=== PATIENT | female | born 1970 | race Caucasian/White ===

== ENCOUNTER 2017-12-31 21:10 | Emergency (ER) | payer SELFPAY ==
[~2017-12-31] VITALS: Ht 149.9 cm; Wt 91.2 kg
[~2017-12-31 21:10] MED LIST: FLEXERIL PO; FLUOXETINE20 MG PO; GABAPENTIN300 MG PO; HYDROXYZ HCL25 MG PO; OLANZAPINE2.5 MG PO; ULTRAM50 M1 PO; VENTOLIN HFA IN; VERAMYST27.5 MCG
[2017-12-31] MEDS ORDERED: TRAZODONE50 MG PO (21:24)
[2017-12-31] MEDS ORDERED: INDERAL10 M1 PO (21:26)
[2017-12-31] MEDS ORDERED: GEODON40 M1 PO (21:27)
[2017-12-31] MEDS ORDERED: DICLOFENAC SODI75 MG PO (21:27)
[2017-12-31] MEDS ORDERED: FLEXERIL5 MG PO (21:28)
[2017-12-31] MEDS ORDERED: CLARITIN-D1 TA2 PO (21:28)
[2017-12-31 22:01] LABS: INFLUENZA A NONE DETECTED (NONE DETECT); INFLUENZA B NONE DETECTED (NONE DETECT)
[2017-12-31 22:06] LABS: HEMATOCRIT 42.6 % (37.0-47.0); HEMOGLOBIN 13.6 g/dl (12.0-16.0); IMMATURE GRANULOCYTES 0.5 % (0.0-1.0); MEAN CELL VOLUME 84.5 fL CALC (80.0-100.0); MEAN CORPUSCULAR HGB CONC 31.9 g/L CALC (32.0-36.0); RED BLOOD COUNT 5.04 mill/uL (4.20-5.60); RED CELL DISTRI WIDTH 14.7 % (11.5-15.5)
[2017-12-31 22:18] LABS: ALBUMIN 4.1 g/dL (3.2-5.0); ALKALINE PHOSPHATASE 151 u/l (38-126); ANION GAP 17 (6-22 (CALC)); BILIRUBIN, TOTAL 0.5 mg/dL (0.0-1.4); BUN 7 mg/dL (7-17); BUN/CREATININE RATIO 8 (12-20 (CALC)); CARBON DIOXIDE 27 mmol/l (22-30); CHLORIDE 99 mmol/l (95-108); CREATININE 0.8 mg/dL (0.5-1.0); GFR > 60 ML/MIN (>=60 (CALC)); GFR FOR AFR.AMER. > 60 ML/MIN (>=60 (CALC)); POTASSIUM 3.9 mmol/l (3.5-5.1); SGOT/AST 34 u/l (14-36); SGPT/ALT 37 u/l (9-52); SODIUM 140 mmol/l (137-146); TOTAL PROTEIN 8.2 g/dL (6.3-8.2)
[2017-12-31] MEDS ORDERED: LORTAB 1010 MG PO (22:34)
[2017-12-31] MEDS ORDERED: CLARITIN10 M1 PO (22:34)
[2017-12-31] MEDS ORDERED: AMOXICILLIN500 MG PO (22:34)
[2017-12-31 22:50] VITALS: BP 125/74
== END 2017-12-31 22:50 | disposition home or self-care (01) | DRG 153 ==
LOC: ED 21:10
PROVIDERS: Emergency Medicine
DX: J02.0 Streptococcal pharyngitis (principal); F17.210 Nicotine dependence, cigarettes, uncomplicated; J44.9 Chronic obstructive pulmonary disease, unspecified

== ENCOUNTER 2018-09-02 13:24 | Emergency (ER) | payer SELFPAY ==
[~2018-09-02] VITALS: Ht 149.9 cm; Wt 77.0 kg
[~2018-09-02 13:24] MED LIST changes: +AMOXICILLIN500 MG PO; +CLARITIN-D1 TA2 PO; +CLARITIN10 M1 PO; +DICLOFENAC SODI75 MG PO; +FLEXERIL5 MG PO; +GEODON40 M1 PO; +INDERAL10 M1 PO; +LORTAB 1010 MG PO; +TRAZODONE50 MG PO
[2018-09-02] MEDS ORDERED: KEFLEX500 M1 PO (15:31)
[2018-09-02] MEDS ORDERED: LORTAB 5/3255 MG PO (15:31)
[2018-09-02 15:34] VITALS: BP 120/78
== END 2018-09-02 15:40 | disposition home or self-care (01) | DRG 605 ==
LOC: ED 13:24
PROC: 2W3HX1Z Immobilization of Left Thumb using Splint (ICD-10-PCS; principal; 2018-09-02)
DX: S61.032A Puncture wound without foreign body of left thumb without damage to nail, initial encounter (principal); S60.012A Contusion of left thumb without damage to nail, initial encounter; J44.9 Chronic obstructive pulmonary disease, unspecified; F17.210 Nicotine dependence, cigarettes, uncomplicated; W25.XXXA Contact with sharp glass, initial encounter; Y93.89 Activity, other specified; Y92.009 Unspecified place in unspecified non-institutional (private) residence as the place of occurrence of the external cause

== ENCOUNTER 2019-03-30 18:38 | Emergency (ER) | payer SELFPAY ==
[~2019-03-30] VITALS: Ht 149.9 cm; Wt 86.6 kg
[~2019-03-30 18:38] MED LIST changes: +KEFLEX500 M1 PO; +LORTAB 5/3255 MG PO
[2019-03-30] MEDS ORDERED: QUETIAPINE FUM100 MG PO (19:21)
[2019-03-30] MEDS ORDERED: BIKTARVY PO (19:28)
[2019-03-30 19:54] LABS: HEMATOCRIT 37.7 % (37.0-47.0); HEMOGLOBIN 11.9 g/dl (12.0-16.0); IMMATURE GRANULOCYTES 0.2 % (0.0-5.0); MEAN CELL VOLUME 88.1 fL CALC (80.0-100.0); MEAN CORPUSCULAR HGB 27.8 pG CALC (26.0-32.0); MEAN CORPUSCULAR HGB CONC 31.6 g/L CALC (32.0-36.0); NEUT# 4.63 thou/uL (2.00-7.15); RED BLOOD COUNT 4.28 mill/uL (4.20-5.60); RED CELL DISTRI WIDTH 13.6 % (11.5-15.5)
[2019-03-30 20:04] LABS: ALBUMIN 3.6 g/dL (3.2-5.0); ALKALINE PHOSPHATASE 124 u/l (38-126); ANION GAP 12 (6-22 (CALC)); BILIRUBIN, TOTAL 0.1 mg/dL (0.0-1.4); BUN 15 mg/dL (7-17); BUN/CREATININE RATIO 17 (12-20 (CALC)); CARBON DIOXIDE 25 mmol/l (22-30); CHLORIDE 109 mmol/l (95-108); CREATININE 0.9 mg/dL (0.5-1.0); GFR > 60 ML/MIN (>=60 (CALC)); GFR FOR AFR.AMER. > 60 ML/MIN (>=60 (CALC)); POTASSIUM 3.7 mmol/l (3.5-5.1); SGOT/AST 19 u/l (14-36); SODIUM 143 mmol/l (137-146); TOTAL PROTEIN 6.9 g/dL (6.3-8.2)
[2019-03-30 20:59] VITALS: BP 106/77
== END 2019-03-30 21:26 | disposition home or self-care (01) | DRG 605 ==
LOC: ED 18:38
PROVIDERS: Emergency Medicine
DX: S80.02XA Contusion of left knee, initial encounter (principal); S40.011A Contusion of right shoulder, initial encounter; K14.0 Glossitis; J44.9 Chronic obstructive pulmonary disease, unspecified; F17.210 Nicotine dependence, cigarettes, uncomplicated; W19.XXXA Unspecified fall, initial encounter
CPT/HCPCS: L1830

== ENCOUNTER 2019-06-13 22:16 | Emergency (ER) | payer SELFPAY ==
[~2019-06-13] VITALS: Ht 149.9 cm; Wt 88.0 kg
[~2019-06-13 22:16] MED LIST changes: +BIKTARVY PO; +QUETIAPINE FUM100 MG PO
[2019-06-13 23:11] LABS: HEMATOCRIT 36.2 % (37.0-47.0); HEMOGLOBIN 12.1 g/dl (12.0-16.0); IMMATURE GRANULOCYTES 0.3 % (0.0-5.0); MEAN CELL VOLUME 87.4 fL CALC (80.0-100.0); MEAN CORPUSCULAR HGB 29.2 pG CALC (26.0-32.0); MEAN CORPUSCULAR HGB CONC 33.4 g/L CALC (32.0-36.0); NEUT# 5.4 thou/uL (2.00-7.15); RED BLOOD COUNT 4.14 mill/uL (4.20-5.60); RED CELL DISTRI WIDTH 14.6 % (11.5-15.5)
[2019-06-13 23:26] LABS: ALBUMIN 3.8 g/dL (3.2-5.0); BILIRUBIN, TOTAL 0.4 mg/dL (0.0-1.4); CREATININE 1.2 mg/dL (0.5-1.0); POTASSIUM 3.9 mmol/l (3.5-5.1); TOTAL PROTEIN 7.3 g/dL (6.3-8.2)
[2019-06-14] MEDS ORDERED: VOLTAREN - GENE75 MG PO (00:55)
[2019-06-14 01:10] VITALS: BP 131/78
== END 2019-06-14 01:10 | disposition home or self-care (01) | DRG 563 ==
LOC: ED 22:16
PROVIDERS: Family Medicine
DX: S46.912A Strain of unspecified muscle, fascia and tendon at shoulder and upper arm level, left arm, initial encounter (principal); S46.911A Strain of unspecified muscle, fascia and tendon at shoulder and upper arm level, right arm, initial encounter; S56.911A Strain of unspecified muscles, fascia and tendons at forearm level, right arm, initial encounter; S66.911A Strain of unspecified muscle, fascia and tendon at wrist and hand level, right hand, initial encounter; S76.011A Strain of muscle, fascia and tendon of right hip, initial encounter; S86.911A Strain of unspecified muscle(s) and tendon(s) at lower leg level, right leg, initial encounter; S80.211A Abrasion, right knee, initial encounter; J44.9 Chronic obstructive pulmonary disease, unspecified; F17.200 Nicotine dependence, unspecified, uncomplicated; W18.30XA Fall on same level, unspecified, initial encounter; Y92.410 Unspecified street and highway as the place of occurrence of the external cause; Z21 Asymptomatic human immunodeficiency virus [HIV] infection status
CPT/HCPCS: J0131

== ENCOUNTER 2019-07-01 11:52 | Observation (INO) | payer SELFPAY ==
[~2019-07-01] VITALS: Ht 149.9 cm; Wt 86.8 kg
[~2019-07-01 11:52] MED LIST changes: -GABAPENTIN300 MG PO; +GABAPENTIN400 MG PO; +VOLTAREN - GENE75 MG PO
[2019-07-01 12:46] LABS: HEMATOCRIT 42.7 % (37.0-47.0); HEMOGLOBIN 13.8 g/dl (12.0-16.0); IMMATURE GRANULOCYTES 0.4 % (0.0-5.0); MEAN CELL VOLUME 88.2 fL CALC (80.0-100.0); MEAN CORPUSCULAR HGB 28.5 pG CALC (26.0-32.0); MEAN CORPUSCULAR HGB CONC 32.3 g/L CALC (32.0-36.0); NEUT# 6.08 thou/uL (2.00-7.15); RED BLOOD COUNT 4.84 mill/uL (4.20-5.60); RED CELL DISTRI WIDTH 13.9 % (11.5-15.5)
[2019-07-01 13:07] LABS: ANION GAP 13 (6-22 (CALC)); BUN 14 mg/dL (7-17); BUN/CREATININE RATIO 15 (12-20 (CALC)); CARBON DIOXIDE 27 mmol/l (22-30); CHLORIDE 104 mmol/l (95-108); CREATININE 0.9 mg/dL (0.5-1.0); GFR > 60 ML/MIN (>=60 (CALC)); GFR FOR AFR.AMER. > 60 ML/MIN (>=60 (CALC)); POTASSIUM 3.7 mmol/l (3.5-5.1); SODIUM 141 mmol/l (137-146)
[2019-07-01] MEDS ORDERED: BIKTARVY 50-2001 TAB PO (14:09)
[2019-07-01] MEDS ORDERED: TRAZODONE100 MG PO (14:15)
[2019-07-01] MEDS ORDERED: ZIPRASIDONE HCL20 M1 PO (14:16)
[2019-07-01] MEDS ORDERED: OMEPRAZOLE20 M2 PO (14:16)
[2019-07-01 15:15] VITALS: BP 153/92
[2019-07-01 19:14] VITALS: BP 153/83
[2019-07-02 00:24] VITALS: BP 150/79
[2019-07-02 05:52] VITALS: BP 152/81
[2019-07-02 08:02] VITALS: BP 153/94
[2019-07-02 11:40] VITALS: BP 159/80
[2019-07-02 16:00] VITALS: BP 159/100
[2019-07-02 19:30] VITALS: BP 136/80
[2019-07-03 00:25] VITALS: BP 151/85
[2019-07-03 04:40] VITALS: BP 151/87
[2019-07-03 07:52] VITALS: BP 143/93
[2019-07-03 07:56] VITALS: BP 143/93
[2019-07-03] MEDS ORDERED: PREDNISONE10 MG PO (10:22)
[2019-07-03] MEDS ORDERED: IPRATROPIU0.5 MG/3 M IN (10:22)
[2019-07-03] MEDS ORDERED: LEVAQUIN750 MG PO (10:22)
[2019-07-03] MEDS ORDERED: NEBULIZER COMPRESSOR (10:23)
== END 2019-07-03 12:30 | disposition home or self-care (01) | DRG 191 ==
LOC: ED 11:52 → ED-I 13:50 → ED 14:28 → MS2 14:29
PROVIDERS: Family Medicine; ADMIT Internal Medicine; ATTEND Internal Medicine
PROC: 3E02340 Introduction of Influenza Vaccine into Muscle, Percutaneous Approach (ICD-10-PCS; principal; 2019-07-02)
PROC: 3E0234Z Introduction of Serum, Toxoid and Vaccine into Muscle, Percutaneous Approach (ICD-10-PCS; 2019-07-02)
DX: J44.1 Chronic obstructive pulmonary disease with (acute) exacerbation (principal); J32.9 Chronic sinusitis, unspecified; F31.81 Bipolar II disorder; F51.05 Insomnia due to other mental disorder; G62.9 Polyneuropathy, unspecified; F17.200 Nicotine dependence, unspecified, uncomplicated; Z21 Asymptomatic human immunodeficiency virus [HIV] infection status; Z23 Encounter for immunization
CPT/HCPCS: G0378; J1650

== ENCOUNTER 2020-04-04 15:14 | Emergency (ER) | payer SELFPAY ==
[~2020-04-04] VITALS: Ht 149.9 cm; Wt 75.0 kg
[~2020-04-04 15:14] MED LIST changes: +BIKTARVY 50-2001 TAB PO; +IPRATROPIU0.5 MG/3 M IN; +LEVAQUIN750 MG PO; +NEBULIZER COMPRESSOR; +OMEPRAZOLE20 M2 PO; +PREDNISONE10 MG PO; +TRAZODONE100 MG PO; +ZIPRASIDONE HCL20 M1 PO
[2020-04-04 16:04] VITALS: BP 141/79
== END 2020-04-04 16:12 | DRG 605 ==
LOC: ED 15:14
PROC: 0HQEXZZ Repair Left Lower Arm Skin, External Approach (ICD-10-PCS; principal; 2020-04-04)
DX: S61.512A Laceration without foreign body of left wrist, initial encounter (principal); J44.9 Chronic obstructive pulmonary disease, unspecified; F17.200 Nicotine dependence, unspecified, uncomplicated; X83.8XXA Intentional self-harm by other specified means, initial encounter; Y92.009 Unspecified place in unspecified non-institutional (private) residence as the place of occurrence of the external cause; Z21 Asymptomatic human immunodeficiency virus [HIV] infection status

== ENCOUNTER 2020-06-04 14:27 | Emergency (ER) | payer SELFPAY ==
[~2020-06-04] VITALS: Ht 149.9 cm; Wt 85.0 kg
[2020-06-04] MEDS ORDERED: TRAMADOL HYDROC50 M1 PO (15:51)
[2020-06-04 15:55] VITALS: BP 139/70
== END 2020-06-04 15:55 | disposition home or self-care (01) | DRG 556 ==
LOC: ED 14:27
DX: M25.551 Pain in right hip (principal); J44.9 Chronic obstructive pulmonary disease, unspecified; F17.210 Nicotine dependence, cigarettes, uncomplicated; Z21 Asymptomatic human immunodeficiency virus [HIV] infection status; S83.207A Unspecified tear of unspecified meniscus, current injury, left knee, initial encounter; S83.206A Unspecified tear of unspecified meniscus, current injury, right knee, initial encounter

== ENCOUNTER 2020-08-25 17:12 | Emergency (ER) | payer MEDICAID ==
[~2020-08-25] VITALS: Ht 149.9 cm; Wt 78.8 kg
[~2020-08-25 17:12] MED LIST changes: +TRAMADOL HYDROC50 M1 PO
[2020-08-25 17:48] VITALS: BP 135/92
== END 2020-08-25 18:25 | disposition left against medical advice (07) | DRG 951 ==
LOC: ED 17:12 → LWOBS 18:24
DX: Z53.21 Procedure and treatment not carried out due to patient leaving prior to being seen by health care provider (principal)